=== PATIENT | male | born 1980 | race Caucasian/White ===

== ENCOUNTER 2024-04-05 14:13 | Inpatient (IN) | payer BC ==
[2024-04-05] MEDS ORDERED: D50W 25 GM/50 ML SYRINGE IV ONE (14:32)
[2024-04-05 14:35] LABS: Absolute Eosinophils 0.1 K/uL (0-0.5); Absolute Lymphocytes (CBC) 1.7 K/uL (0.7-4.9); Absolute Monocytes 0.5 K/uL (0.1-1.3); Basophils % 0.8 % (0-1.3); Eosinophils % 1.2 % (0-4.4); Hematocrit 49.8 % (39.6-49.0); Hemoglobin 16.5 g/dL (13.6-17.9); Lymphocytes % 26.8 % (15.3-44.8); MCHC 33.1 g/dL (32.0-36.0); MCV 93.6 fL (80-100); MPV 8.2 fL (7.6-11.3); Monocytes % 7.9 % (3.3-12.3); Neutrophils % 63.3 % (41.7-73.7); Platelets 260 thou/uL (152-406); RBC Red Blood Cell Count 5.32 M/uL (4.33-5.43); Red Cell Distribution Width 13.6 % (12.1-15.2)
[2024-04-05 14:39] LABS: PT Prothrombin Time 10.8 SECONDS (9.4-12.5); PTT, Activated Partial Thromb 25.7 SECONDS (24.3-36.9); Protime INR 0.96
[2024-04-05 14:51] LABS: Albumin 4.4 g/dL (3.4-5.0); Albumin/Globulin Ratio 1.2 (1.1-1.8); Anion Gap 12.5 mEq/L (5.0-15.0); Bilirubin Direct 0.2 mg/dL (0-0.2); Bilirubin Indirect, Calculated 0.4 mg/dL (0.2-0.8); Bilirubin Total 0.6 mg/dL (0.2-1.0); Globulin 3.7 g/dL (2.3-3.5); Magnesium 2.1 mg/dL (1.6-2.4); Potassium 3.5 mEq/L (3.5-5.1); Protein, Total 8.1 g/dL (6.4-8.2); Troponin High Sensitivity 8.6 pg/mL (<58.9)
[2024-04-05] MEDS ORDERED: LABETALOL 20 MG/4ML SYRINGE IV ONE ×2 (15:19→16:35)
[2024-04-05 15:38] LABS: Barbiturates NEGATIVE (NEGATIVE); Benzodiazepines NEGATIVE (NEGATIVE); Cocaine NEGATIVE (NEGATIVE); METHAMPHETAM NEGATIVE (NEGATIVE); Methadone NEGATIVE (NEGATIVE); Opiates NEGATIVE (NEGATIVE); Phencyclidine NEGATIVE (NEGATIVE); THC Cannibis NEGATIVE (NEGATIVE)
--- NOTE | 2024-04-05 16:25 | EDPHYS ---
Physician Documentation [facility] Name: Yeyo Harmon Age: 43 yrs Sex: Male : 1980 Arrival Date: 04/05/2024 Time: 14:13 Bed 13 Private MD: ED Physician Duane Bangura HPI: 04/05 18:22 This 43 yrs old Male presents to ER via EMS with complaints of S/S of Possible Stroke. ms3 18:22 43-year-old male with no past medical history presents to the emergency department via [address] [facility] for altered mental status. 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 At 1 PM patient's girlfriend heard a crash and patient had fallen out of the bed.. Historical: - Allergies: 14:22 No Known Allergies; mb9 - Home Meds: 14:22 None [Active]; mb9 - PMHx: 14:22 None; mb9 - PSHx: 14:22 None; mb9 - Immunization history:: Adult Immunizations up to date. - Infectious Disease History:: Denies. - Social history:: Smoking status: unknown. ROS: 18:22 Unable to obtain ROS due to altered mental status, ms3 Exam: 18:22 Radiologist reports: CT head without contrast negative ms3 18:22 Constitutional: This is a well developed, well nourished patient who is awake, alert, and in no acute distress. Head/Face: Normocephalic, atraumatic. Cardiovascular: Regular rate and rhythm with a normal S1 and S2. No gallops, murmurs, or rubs. Normal PMI, no JVD. No pulse deficits. Respiratory: Lungs have equal breath sounds bilaterally, clear to auscultation and percussion. No rales, rhonchi or wheezes noted. No increased work of breathing, no retractions or nasal flaring. Abdomen/GI: Soft, non-tender, with normal bowel sounds. No distension or tympany. No guarding or rebound. No evidence of tenderness throughout. 18:22 Neuro: Orientation: unable to test, Mentation: responsive to voice confused, Memory: unable to test, Motor: moves all fours, seizure activity, is not displayed by the patient, Abnormal movements: there are no abnormal movements, 18:44 ECG was reviewed by the Attending Physician. ms3 Vital Signs: 14:11 BP 183 / 125; Pulse 98; Resp 18; Temp 98.5; Pulse Ox 100% ; Height 5 ft. 11 in. ; mb9 15:16 BP 174 / 145; Pulse 91; Resp 18; Pulse Ox 100% on R/A; mb9 15:35 BP 161 / 124; Pulse 79; Resp 18; Pulse Ox 100% on R/A; mb9 16:10 BP 160 / 112; Pulse 84; Resp 16; Pulse Ox 97% on R/A; mb9 16:45 BP 162 / 104; Pulse 88; Resp 16; Pulse Ox 97% on R/A; mb9 17:56 BP 158 / 113; Pulse 86; Resp 18; Pulse Ox 96% on R/A; mb9 MDM: 14:22 Patient medically screened. kb 18:22 TNKase (Tenecteplase) Screening: Contraindications: Patient reports onset of signs and ms3 symptoms of stroke greater than 6 hours ago: Yes. Data reviewed: vital signs, nurses notes, and as a result, I will admit patient. Consideration of Admission/Observation Patient was admitted/placed on observation. Management of patient was discussed with the following: Hospitalist: Dr Keith. I considered the following discharge prescriptions or medication management in the emergency department Medications were administered in the Emergency Department. See MAR. Independent interpretation of the following test(s) in the Emergency Department EKG: See my EKG interpretation above CT Scan: My interpretation is CT head without contrast images reviewed by me did not reveal ICH. Historians other than the Patient: EMS: [facility]. Counseling: I had a detailed discussion with the patient and/or guardian regarding the historical points, exam findings, and any diagnostic results supporting the discharge/admit diagnosis, lab results, radiology results, the need for further work-up and treatment in the hospital. ED course: Patient with mild improvement of mental status with confusion and mostly unintelligible speech. Discussed case with Dr. Porter he recommends aspirin, Plavix, folic acid. Patient may need EEG. Discussed case with Dr. Keith and he accepts patient as admission.. 04/05 14:31 Order name: Basic Metabolic Panel; Complete Time: 14:56 ms3 04/05 14:31 Order name: CBC with Diff; Complete Time: 14:56 ms3 04/05 14:31 Order name: Hepatic Function; Complete Time: 14:56 ms3 04/05 14:31 Order name: High Sensitivity Troponin; Complete Time: 14:56 ms3 04/05 14:31 Order name: Magnesium; Complete Time: 14:56 ms3 04/05 14:31 Order name: Protime (+inr); Complete Time: 14:56 ms3 04/05 14:31 Order name: Ptt, Activated; Complete Time: 14:56 ms3 04/05 14:31 Order name: UDS; Complete Time: 15:39 ms3 04/05 14:33 Order name: Glucose, Ancillary Testing; Complete Time: 14:56 EDMS 04/05 14:35 Order name: Glucose, Ancillary Testing EDMS 04/05 14:43 Order name: CREATININE WHOLE BLOOD; Complete Time: 14:56 EDMS 04/05 14:45 Order name: Glucose, Ancillary Testing; Complete Time: 14:56 EDMS 04/05 14:56 Order name: ETOH Level; Complete Time: 15:39 ms3 04/05 17:32 Order name: CBC with Automated Diff EDMS 04/05 17:32 Order name: CBC with Automated Diff EDMS 04/05 17:32 Order name: Comprehensive Metabolic Panel EDMS 04/05 17:32 Order name: Comprehensive Metabolic Panel EDMS 04/05 17:32 Order name: Magnesium EDMS 04/05 17:32 Order name: Magnesium EDMS 04/05 17:32 Order name: Phosphorus EDMS 04/05 17:32 Order name: Phosphorus EDMS 04/05 17:32 Order name: Protime (+INR) EDMS 04/05 17:32 Order name: Protime (+INR) EDMS 04/05 17:32 Order name: PTT, Activated Partial Thromb EDMS 04/05 17:32 Order name: PTT, Activated Partial Thromb EDMS 04/05 17:32 Order name: T4 Free EDMS 04/05 17:32 Order name: T4 Free EDMS 04/05 17:32 Order name: Thyroid Stimulating Hormone EDMS 04/05 17:32 Order name: Thyroid Stimulating Hormone EDMS 04/05 17:32 Order name: Troponin High Sensitivity EDMS 04/05 17:32 Order name: Troponin High Sensitivity EDMS 04/05 17:32 Order name: Troponin High Sensitivity EDMS 04/05 17:32 Order name: Troponin High Sensitivity EDMS 04/05 17:33 Order name: Ammonia EDMS 04/05 17:46 Order name: Blood Culture Adult (2) mb9 04/05 18:14 Order name: Procalcitonin EDMS 04/05 18:15 Order name: Lactate w/ 2H reflex if indic. EDMS 04/05 14:31 Order name: CT Neck Angio ms3 04/05 14:31 Order name: CT Stroke Brain w/o Contrast ms3 04/05 14:31 Order name: Stroke CXR 1 View ms3 04/05 14:33 Order name: Head angio EDMS 04/05 17:32 Order name: CONS Physician Consult EDMS 04/05 17:32 Order name: Physical Therapy Consult EDMS 04/05 14:31 Order name: Accucheck; Complete Time: 14:35 ms3 04/05 14:31 Order name: Cardiac monitoring; Complete Time: 14:35 ms3 04/05 14:31 Order name: EKG - Nurse/Tech; Complete Time: 14:35 ms3 04/05 14:31 Order name: IV Saline Lock; Complete Time: 14:35 ms3 04/05 14:31 Order name: Labs collected and sent; Complete Time: 14:35 ms3 04/05 14:31 Order name: NPO; Complete Time: 14:35 ms3 04/05 14:31 Order name: O2 Per Protocol; Complete Time: 14:35 ms3 04/05 14:31 Order name: O2 Sat Monitoring; Complete Time: 14:35 ms3 04/05 14:31 Order name: Stroke Swallow Screen; Complete Time: 15:13 ms3 04/05 15:12 Order name: Straight Cath; Complete Time: 15:12 mb9 EC:44 Rate is 90 beats/min. Rhythm is regular. Left axis deviation noted. OR interval is ms3 normal. QRS interval is normal. Clinical impression: NSR w/ Non-specific ST/T Changes. Interpreted by me. Reviewed by me. Administered Medications: 14:25 Drug: D50W IVP 50 ml IVP once; (1 amp) Route: IVP; Site: right antecubital; mb9 15:15 Follow up: Response: No adverse reaction mb9 15:21 Drug: Labetalol IV 10 mg IV at calculated rate once Route: IV; Rate: calculated rate; mb9 Site: right antecubital; 18:17 Follow up: Response: No adverse reaction; IV Status: Completed infusion mb9 16:44 Drug: Labetalol IV 10 mg IV at calculated rate once Route: IV; Rate: calculated rate; mb9 Site: right antecubital; 18:17 Follow up: Response: No adverse reaction; IV Status: Completed infusion mb9 Point of Care Testing: Blood Glucose: 14:18 Blood Glucose: 42 mg/dL; mb9 Ranges: Critical Glucose Levels:Adult <50 mg/dl or >400 mg/dl <40 mg/dl or >180 mg/dl Disposition: 18:44 Chart complete. ms3 Disposition Summary: 04/05/24 16:24 Hospitalization Ordered Notes: Hospitalization Status: Inpatient Admission ms3 Provider: Charlie Keith ms3 Condition: Stable ms3 Problem: new ms3 Symptoms: are unchanged ms3 Bed/Room Type: Standard ms3 Location: Intensive Care Unit(04/05/24 17:41) Room Assignment: 6-(04/05/24 17:41) Diagnosis - Altered mental status, unspecified ms3 - Aphasia ms3 - Essential (primary) hypertension ms3 Forms: - Medication Reconciliation Form ms3 - SBAR form ms3 - Leadership Thank You Letter ms3 Signatures: Dispatcher [employer] EDStarla Cruz, RAILROAD TRACK MECHANIC-C RAILROAD TRACK MECHANIC-Ana Tuttle RN RN Duane Chand DO DO ms3 Jane Brunner RN RN mb9 Corrections: (The following items were deleted from the chart) 14:32 14:31 BASIC METABOLIC PANEL+C.LAB.BRZ ordered. EDMS EDMS 14:32 14:31 CBC+H.LAB.BRZ ordered. EDMS EDMS 14:32 14:31 HEPATIC FUNCTION+C.LAB.BRZ ordered. EDMS EDMS 14:32 14:31 Troponin High Sensitivity+C.LAB.BRZ ordered. EDMS EDMS 14:32 14:31 MAGNESIUM+C.LAB.BRZ ordered. EDMS EDMS 14:32 14:31 PROTIME (+INR)+COAG.LAB.BRZ ordered. EDMS EDMS 14:32 14:31 PTT, ACTIVATED+COAG.LAB.BRZ ordered. EDMS EDMS 14:32 14:31 URINE DRUG SCREEN+UC.LAB.BRZ ordered. EDMS EDMS 14:32 14:32 Neck Angio+CT.RAD.BRZ ordered. EDMS EDMS 14:32 14:32 CT-STROKE BRAIN W/O CONTRAST+CT.RAD.BRZ ordered. EDMS EDMS 14:32 14:32 Chest Single View+RAD.RAD.BRZ ordered. EDMS EDMS 14:38 14:33 Ct Stroke Brain Wo Cont ordered. EDMS EDMS 14:38 14:33 Neck Angio ordered. EDMS EDMS 17:41 16:24 Telemetry/MedSurg (Inpatient) ms3 ss 17:41 16:24 ms3 ss
--- NOTE | 2024-04-05 16:25 | ER ---
Nurse's Notes [facility] Name: Yeyo Harmon Age: 43 yrs Sex: Male : 1980 Arrival Date: 04/05/2024 Time: 14:13 Bed 13 Private MD: Diagnosis: Altered mental status, unspecified;Aphasia;Essential (primary) hypertension Presentation: 04/05 14:11 Acuity: EMMA 2 mb9 14:11 Chief complaint: EMS states: "toned out for AMS that started at 1300. Pts GF stated she mb9 heard a thud and found him on the floor. Pt went to bed at 8am this morning and had 1 drink before bed.". Coronavirus screen: At this time, the client does not indicate any symptoms associated with coronavirus-19. Ebola Screen: No symptoms or risks identified at this time. An acute neurological deficit is present. The charge nurse has been notified. The patient has been moved to a treatment area. Pre-hospital glucose is not applicable to this patient. Initial Sepsis Screen: Does the patient meet any 2 criteria? No. Patient's initial sepsis screen is negative. Does the patient have a suspected source of infection? No. Patient's initial sepsis screen is negative. Risk Assessment: Do you want to hurt yourself or someone else? Unable to obtain. Onset of symptoms was April 05, 2024. 14:11 Method Of Arrival: EMS: [facility] mb9 Stroke Activation: Physician: ED Attending; Name: Dr. Bangura; Notified At: ; Arrived At: Physician: Mid-Level Provider; Name: ; Notified At: ; Arrived At: Physician: [not used]; Name: ; Notified At: ; Arrived At: Physician: [not used]; Name: ; Notified At: ; Arrived At: Physician: [not used]; Name: ; Notified At: ; Arrived At: Historical: - Allergies: 14:22 No Known Allergies; mb9 - Home Meds: 14:22 None [Active]; mb9 - PMHx: 14:22 None; mb9 - PSHx: 14:22 None; mb9 - Immunization history:: Adult Immunizations up to date. - Infectious Disease History:: Denies. - Social history:: Smoking status: unknown. Screenin:25 [facility] ED Fall Risk Assessment (Adult) History of falling in the last 3 months, mb9 including since admission Yes- fall prone (multiple falls) (3 pts) Confusion or Disorientation Yes (5 pts) Intoxicated or Sedated No (0 pts) Impaired Gait Yes (1 pt) Mobility Assist Device Used Yes (1 pt) Altered Elimination No (0 pt) Score/Fall Risk Level 3 or more points = High Risk Oriented to surroundings, Maintained a safe environment, Educated pt \\T\\ family on fall prevention, incl call for assistance when getting out of bed, Assessed \\T\\ reinforced patient's understanding of fall precautions, Provided non-skid footwear. Abuse screen: Denies threats or abuse. Nutritional screening: No deficits noted. Tuberculosis screening: No symptoms or risk factors identified. Assessment: 14:11 Reassessment: Code Stroke called. PT taken to CT via stretcher accompanied by nurse. mb9 14:11 General: Appears uncomfortable, Behavior is agitated, anxious, combative, restless, mb9 uncooperative. Pain: Unable to use pain scale. Patient is disoriented. Neuro: Level of Consciousness is confused, Oriented to none aphasia present . Cardiovascular: Patient's skin is warm and dry. Respiratory: Airway is patent Respiratory effort is even, unlabored, Respiratory pattern is regular, symmetrical. GI: Abdomen is round non-distended. : No signs and/or symptoms were reported regarding the genitourinary system. EENT: No signs and/or symptoms were reported regarding the EENT system. Derm: Skin is pink, warm \\T\\ dry. Musculoskeletal: Range of motion: intact in all extremities. 14:36 Reassessment: Unable to complete NIH score at this time due to pt being noncompliant mb9 and unable to follow commands. 14:47 Follansbee Swallow Protocol Exclusion Criteria: Unable to remain alert for testing: Yes. mb9 TNKase (Tenecteplase) Screening: Not Applicable. 15:03 Reassessment: Girlfriend at bedside. mb9 15:16 Reassessment: No changes from previously documented assessment. Patient states symptoms mb9 have not improved. 15:40 Reassessment: pt attempting to climb out of bed. Verbal reassurance given. Pt directed mb9 back to laying down and repositioned. 16:20 Reassessment: pt attempting to climb out of bad. PT confused and uncooperative. Charge mb9 nurse notified and sitter requested. 17:00 Reassessment: Patient appears in no apparent distress at this time. No changes from mb9 previously documented assessment. Vital Signs: 14:11 BP 183 / 125; Pulse 98; Resp 18; Temp 98.5; Pulse Ox 100% ; Height 5 ft. 11 in. ; mb9 15:16 BP 174 / 145; Pulse 91; Resp 18; Pulse Ox 100% on R/A; mb9 15:35 BP 161 / 124; Pulse 79; Resp 18; Pulse Ox 100% on R/A; mb9 16:10 BP 160 / 112; Pulse 84; Resp 16; Pulse Ox 97% on R/A; mb9 16:45 BP 162 / 104; Pulse 88; Resp 16; Pulse Ox 97% on R/A; mb9 17:56 BP 158 / 113; Pulse 86; Resp 18; Pulse Ox 96% on R/A; mb9 ED Course: 14:16 Patient arrived in ED. cm10 14:17 Patient Code stroke called after evaluation by Dr. Bangura. ll1 14:21 Jane Brunner, RN is Primary Nurse. mb9 14:22 Duane Bangura DO is Attending Physician. kb 14:24 Triage completed. mb9 14:24 Initial lab(s) drawn, by me, sent to lab. Maintain EMS IV. Dressing intact. Good blood mb9 return noted. Site clean \\T\\ dry. Gauge \\T\\ site: 16g right AC. Flushed with 10 mL NS. 14:26 Placed in gown. Bed in low position. Call light in reach. Side rails up X 1. Provided mb9 Education on: press call light if needing anything. Client placed on continuous cardiac and pulse oximetry monitoring. NIBP monitoring applied. patient monitor on. 14:40 CT Stroke Brain w/o Contrast In Process Unspecified. EDMS 14:40 EKG done, by ED staff, reviewed by Duane Bangura DO. mb9 14:44 Head angio In Process Unspecified. EDMS 14:44 CT Neck Angio In Process Unspecified. EDMS 14:48 Arm band placed on. mb9 14:50 No provider procedures requiring assistance completed. mb9 15:10 Stroke CXR 1 View In Process Unspecified. EDMS 15:13 ETOH Level Sent. mb9 15:13 Straight cath inserted, using sterile technique, 14 Fr. mb9 16:23 Charlie Keith MD is Hospitalizing Provider. ms3 17:56 Inserted saline lock: 18 gauge in left forearm, using aseptic technique. Blood mb9 collected. Flushed with 10 mL NS. 17:56 Patient admitted, IV remains in place. mb9 18:35 Notified the Hospitalist of a critical lab result(s), lactate 2.8 Dr. Mederos informed. ll1 Administered Medications: 14:25 Drug: D50W IVP 50 ml IVP once; (1 amp) Route: IVP; Site: right antecubital; mb9 15:15 Follow up: Response: No adverse reaction mb9 15:21 Drug: Labetalol IV 10 mg IV at calculated rate once Route: IV; Rate: calculated rate; mb9 Site: right antecubital; 18:17 Follow up: Response: No adverse reaction; IV Status: Completed infusion mb9 16:44 Drug: Labetalol IV 10 mg IV at calculated rate once Route: IV; Rate: calculated rate; mb9 Site: right antecubital; 18:17 Follow up: Response: No adverse reaction; IV Status: Completed infusion mb9 Medication: 14:26 VIS not applicable for this client. mb9 Point of Care Testing: Blood Glucose: 14:18 Blood Glucose: 42 mg/dL; mb9 Ranges: Outcome: 16:24 Decision to Hospitalize by Provider. ms3 18:17 Admitted to ICU accompanied by nurse, accompanied by tech, via wheelchair, on monitor, mb9 Report called to IAN Sky 18:17 Condition: stable 18:17 Instructed on the need for admit, 18:52 Patient left the ED. ll1 Signatures: Dispatcher [employer] EDNC Starla Rodriguez, ERP MANAGER-C ERP MANAGER-Helen Villa RN RN ll1 Duane Bangura DO DO ms3 Jane rBunner RN RN [email or web address] Alexandra Frankel, IAN RN cm10 Corrections: (The following items were deleted from the chart) 14:21 14:21 Reassessment: Code Stroke called. PT taken to CT via stretcher accompanied by joy nurse joy 14:49 14:48 Follansbee Swallow Protocol 3 oz Water Swallow Challenge: mb9 mb9 15:03 14:11 Neuro: Level of Consciousness is confused, Oriented to none mb9 mb9 18:54 18:49 Reassessment: 9 mb9
--- NOTE | 2024-04-05 17:04 | RAD REPORT ---
EXAM DESCRIPTION: CT - Ct Stroke Brain Wo Cont - 04/05/2024 2:38 pm CLINICAL HISTORY: Confusion/alteration of awareness COMPARISON: none TECHNIQUE: Computed axial tomography of the head was obtained. All CT scans are performed using dose optimization technique as appropriate and may include automated exposure control or mA/KV adjustment according to patient size. FINDINGS: An intracranial bleed is not seen . The ventricles are normal in caliber. No extra-axial fluid collection is noted. No significant hypodensity within the brain noted Fluid within the sinuses/ mastoids is not seen. Due to technical issues this exam could not dictated until now IMPRESSION: No acute intracranial abnormality is seen. If patient's symptoms persist MRI of the bra in would be recommended Dr Mc of the emergency room was notified at approximately 2:46 p.m. April 05, 2024
[2024-04-05] MEDS ORDERED: ACETAMINOPHEN 500 MG TAB PO PRN (17:26)
[2024-04-05] MEDS ORDERED: ONDANSETRON 4 MG/2 ML VIAL IV PRN (17:26)
--- NOTE | 2024-04-05 17:37 | P.HP ---
Certification for Inpatient Patient admitted to: Inpatient With expected LOS: >2 Midnights Patient will require the following post-hospital care: Home Health Services Practitioner: I am a practitioner with admitting privileges, knowledge of patient current condition, hospital course, and medical plan of care. Services: Services provided to patient in accordance with Admission requirements found in Title 42 Section 412.3 of the Code of Federal Regulations Patient History Date of Service: 04/05/24 Reason for admission: Altered mental status History of Present Illness: Patient is a 43-year-old gentleman came to the hospital with altered mentation. Patient's states that he has been in normal health and he had been doing really well. He has been working his regular schedule at [employer] in [place] for many years. They both have been working night shifts and he came home early this morning around 8:00. He had taken some Benadryl and had something to drink and had gone to sleep a little bit after that time. She woke up around 1:00 because she heard a loud sound. She woke to find him on the ground and he was fumbling his words. He was really confused and not making a lot of sense. She called EMS who brought him to the emergency room. Code stroke was initiated. CT imaging was performed which did not reveal any significant abnormality. Neurology was notified. I came to see the patient as well and patient was really confused and trying to get out of bed. He was moving all his extremities and he was turning his head all over the place. He seemed very agitated so we gave him some medication for sedation. I started him on Ativan as well as we will start him on a Precedex drip as he is at a risk of hurting himself or staff as he is very agitated. At this time, patient will be admitted to the intensive care unit as we are really not sure exactly what is going on with him and with his degree of agitation he will require a one-to-one sitter. His significant other who has been with him for many years is at bedside & plans to stay with him. At this time, patient will be admitted to the intensive care unit for close monitoring. Allergies No Known Allergies Allergy (Unverified 04/05/24 17:21) Home Medications: NK [No Home Meds] 04/05/24 - Past Medical/Surgical History -: Hypertension Past Surgical History: Unable to obtain - Family History Father Family History: Reviewed- Non-Contributory - Social History Smoking Status: Former smoker Alcohol use: Yes CD- Drugs: No Review of Systems 10-point ROS is otherwise unremarkable Physical Examination - Physical Exam General: Alert, Confused, Other (Patient very agitated) HEENT: Atraumatic, PERRLA, Mucous membr. moist/pink, EOMI, Sclerae nonicteric Neck: Supple, 2+ carotid pulse no bruit, No LAD, Without JVD or thyroid abnormality Respiratory: Clear to auscultation bilaterally, Normal air movement Cardiovascular: Regular rate/rhythm, Normal S1 S2 Gastrointestinal: Normal bowel sounds, Soft and benign, Non-distended, No tenderness Musculoskeletal: No clubbing, No swelling, No tenderness Integumentary: No rashes Neurological: Normal strength at 5/5 x4 extr, Normal tone, Sensation intact, Cranial nerves 3-12 intact, Abnormal speech (Patient is aphasic and not making a lot of sense), Abnormal affect Lymphatics: No axilla or inguinal lymphadenopathy - Studies Laboratory Data (last 24 hrs) 04/05/24 04/05/24 04/05/24 14:18 14:18 14:18 WBC 6.40 Hgb 16.5 Hct 49.8 H Plt Count 260 PT 10.8 INR 0.96 APTT 25.7 Sodium 138 Potassium 3.5 BUN 17 Creatinine 1.01 Glucose 130 H Magnesium 2.1 Total Bilirubin 0.6 AST 17 ALT 30 Alkaline Phosphatase 52 Assessment & Plan - Problems (Diagnosis) (1) Altered mental status Current Visit: Yes Status: Acute (2) Aphasia Current Visit: Yes Status: Acute (3) Hypertensive urgency Current Visit: Yes Status: Acute - Plan 1. Gentle hydration 2. Panculture 3. IV antibiotic and antiviral prophylactically 4. Imaging studies including CT of the brain. MRI for in the morning after sedation 5. Monitor electrolytes 6. Check thyroid studies as well as cortisol level 7. Review medications 8. Neurochecks every 4 hours 9. Permissive hypertension at this time 10. GI DVT prophylaxis Discharge Plan: Home Plan to discharge in: Greater than 2 days - Advance Directives Does patient have a Living Will: No Does patient have a Durable POA for Healthcare: No - Code Status/Comfort Care Code Status Assessed: Yes Code Status: Full Code Critical Care: Yes Time Spent Managing PTS Care (In Minutes): 60
[2024-04-05] MEDS ORDERED: NA CHLORIDE 0.9% 1,000 ML ONE (17:49)
[2024-04-05] MEDS ORDERED: LORazepam 2 MG/ML VIAL ONE (17:49)
[2024-04-05] MEDS: NA CHLORIDE 0.9% 1,000 ML IV SCH (17:57)
[2024-04-05] MEDS: LORazepam 2 MG/ML VIAL IV ONE (17:58)
[2024-04-05] MEDS: LORazepam 2 MG/ML VIAL IV SCH (18:00)
[2024-04-05] MEDS: DEXMEDETOMIDINE HCL 200 MCG in NA CHLORIDE 0.9% 98 ML IV SCH (18:06)
--- NOTE | 2024-04-05 18:14 | RAD REPORT ---
EXAM DESCRIPTION: Peng Single View04/05/2024 3:08 pm CLINICAL HISTORY: Chest pain COMPARISON: none FINDINGS: The lungs appear clear of acute infiltrate. The heart is borderline enlarged Due to technical issues the exam could not be dictated until now. A preliminary report was given to [facility] emergency room IMPRESSION: No acute abnormalities displayed
--- NOTE | 2024-04-05 19:11 | RAD REPORT ---
EXAM DESCRIPTION: Zahra Angio04/05/2024 2:42 pm CLINICAL HISTORY: CVA COMPARISON: None TECHNIQUE: 100 cc Isovue [address] angiogram of the neck was obtained. 3D MIPS reconstruction performed. All CT scans are performed using dose optimization technique as appropriate and may include automated exposure control or mA/KV adjustment according to patient size. FINDINGS: Great vessels unremarkable Common carotid, internal carotid and external carotid arteries bilaterally unremarkable Vertebral arteries unremarkable No dissection is seen. No high-grade stenosis [place] crieria Mild stenosis 0 to 49 % Moderate stenosis 50-69% Severe stenosis 70-99% Due to technical issues the exam did not get dictated until now. Preliminary report was given to the emergency room IMPRESSION: No significant vascular abnormality is displayed
--- NOTE | 2024-04-05 19:11 | RAD REPORT ---
EXAM DESCRIPTION: CTHead angio04/05/2024 2:42 pm CLINICAL HISTORY: CVA COMPARISON: none TECHNIQUE: 100 cc Isovue [address] angiogram of the head was obtained. 3D MIPS reconstruction performed. All CT scans are performed using dose optimization technique as appropriate and may include automated exposure control or mA/KV adjustment according to patient size. FINDINGS: The distal internal carotid basilar, anterior cerebral, middle cerebral and posterior cere bral arteries do not demonstrate a significant stenosis An aneurysm is not seen No large vessel occlusion Due to technical issues the exam did not get dictated until now. Preliminary report was given to the emergency room IMPRESSION: No significant vascular abnormality is displayed
[2024-04-05] MEDS: KCL 20 MEQ/100 mL IVPB 20 MEQ/100 ML BAG IV SCH (19:22)
[2024-04-05] MEDS: NA CHLORIDE 0.9% 1,000 ML IV ONE (19:22)
[2024-04-05] MEDS: ENOXAPARIN 40 MG/0.4 ML SQ SCH (19:22)
[2024-04-05] MEDS: levETIRAcetam 500 MG in NA CHLORIDE 0.9% 100 ML IV SCH (19:40)
[2024-04-05] MEDS: LORazepam 2 MG/ML VIAL IV PRN (19:58)
[2024-04-05] MEDS: HYDRALAZINE HCL 20 MG/ML VIAL IV PRN (19:59)
[2024-04-05] MEDS: ASPIRIN EC 81 MG TAB PO ONE (19:59)
[2024-04-05] MEDS: ATORVASTATIN 40 MG TAB PO SCH (21:00)
[2024-04-05] MEDS: DEXMEDETOMIDINE HCL 200 MCG/2 ML VIAL ONE ×2 (23:19→23:20)
[2024-04-05] MEDS: NA CHLORIDE 0.9% 500 ML ONE (23:19)
[2024-04-06] MEDS: DEXMEDETOMIDINE HCL 1,000 MCG in NA CHLORIDE 0.9% 490 ML IV SCH (00:50)
[2024-04-06] MEDS ORDERED: DEXMEDETOMIDINE HCL 200 MCG in NA CHLORIDE 0.9% 98 ML IV SCH (00:50)
[2024-04-06 05:19] LABS: Absolute Eosinophils 0.1 K/uL (0-0.5); Absolute Lymphocytes (CBC) 2.3 K/uL (0.7-4.9); Absolute Monocytes 0.8 K/uL (0.1-1.3); Absolute Neutrophil 6.3 K/uL (1.8-8.0); Basophils % 0.5 % (0-1.3); Eosinophils % 1.5 % (0-4.4); Hematocrit 42.6 % (39.6-49.0); Hemoglobin 14.3 g/dL (13.6-17.9); Lymphocytes % 24.2 % (15.3-44.8); MCH 31.4 pg (27.0-35.0); MCHC 33.7 g/dL (32.0-36.0); MCV 93.3 fL (80-100); MPV 8.4 fL (7.6-11.3); Monocytes % 8.2 % (3.3-12.3); Neutrophils % 65.6 % (41.7-73.7); PT Prothrombin Time 11.9 SECONDS (9.4-12.5); PTT, Activated Partial Thromb 27.7 SECONDS (24.3-36.9); Platelets 212 thou/uL (152-406); Protime INR 1.06; RBC Red Blood Cell Count 4.57 M/uL (4.33-5.43); Red Cell Distribution Width 13.6 % (12.1-15.2)
[2024-04-06] MEDS ORDERED: DEXMEDETOMIDINE HCL IV SCH (05:25)
[2024-04-06] MEDS ORDERED: NA CHLORIDE 0.9% IV SCH (05:25)
[2024-04-06 05:59] LABS: ALT/SGPT 22 U/L (16-61); Albumin 3.8 g/dL (3.4-5.0); Albumin/Globulin Ratio 1.4 (1.1-1.8); Alkaline Phosphatase 44 U/L (45-117); BUN Blood Urea Nitrogen 16 mg/dL (7-18); Bicarbonate 24 mEq/L (21-32); Bilirubin Total 1.2 mg/dL (0.2-1.0); Globulin 2.7 g/dL (2.3-3.5); Glomerular Filtration Rate 82 ml/min (=/>90); Glucose Level 129 mg/dL (74-106); Magnesium 1.7 mg/dL (1.6-2.4); Phosphorus 4.2 mg/dL (2.5-4.9); Protein, Total 6.5 g/dL (6.4-8.2); Sodium Level 140 mEq/L (136-145); Troponin High Sensitivity 6.8 pg/mL (<58.9)
[2024-04-06 06:01] LABS: AST/SGOT < 10 U/L (15-37)
[2024-04-06] MEDS: MAGNESIUM SULFATE 1 gm IVPB 1 GM/100 ML BAG IV ONE ×2 (06:20→06:25)
[2024-04-06] MEDS: ASPIRIN EC 81 MG TAB PO SCH (08:16)
[2024-04-06] MEDS: CEFTRIAXONE 2,000 MG in NA CHLORIDE 0.9% 100 ML IV SCH (10:35)
--- NOTE | 2024-04-06 10:35 | P.PN ---
Date of Service: 04/06/24 Subjective Patient doing better. Mentation improved. Hemodynamics are much better. Working on discharge planning in the morning. Physical Examination - Physical Exam General: Alert, Confused, Other (Patient very agitated) Respiratory: Clear to auscultation bilaterally, Normal air movement Cardiovascular: Regular rate/rhythm, Normal S1 S2 Gastrointestinal: Normal bowel sounds, Soft and benign, Non-distended, No tenderness Musculoskeletal: No clubbing, No swelling, No tenderness Integumentary: No rashes Neurological: Normal strength at 5/5 x4 extr, Normal tone, Sensation intact, Cranial nerves 3-12 intact, Abnormal speech (Patient is aphasic and not making a lot of sense), Abnormal affect Assessment & Plan - Problems (Diagnosis) (1) Altered mental status Current Visit: Yes Status: Acute (2) Aphasia Current Visit: Yes Status: Acute (3) Hypertensive urgency Current Visit: Yes Status: Acute - Plan Continue with plan of care as mentioned below: 1. Gentle hydration 2. Panculture 3. IV antibiotic and antiviral prophylactically 4. Imaging studies including CT of the brain. MRI for in the morning after sedation 5. Monitor electrolytes 6. Check thyroid studies as well as cortisol level 7. Review medications 8. Neurochecks every 4 hours 9. Permissive hypertension at this time 10. GI DVT prophylaxis Discharge Plan: Home Plan to discharge in: Greater than 2 days - Advance Directives Does patient have a Living Will: No Does patient have a Durable POA for Healthcare: No - Code Status/Comfort Care Code Status Assessed: Yes Code Status: Full Code Critical Care: Yes Time Spent Managing PTS Care (In Minutes): 60
[2024-04-06] MEDS: LORazepam 2 MG/ML VIAL IV ONE (10:59)
[2024-04-06] MEDS: ACYCLOVIR INJ 800 MG in NA CHLORIDE 0.9% 100 ML IVPB SCH (12:57)
[2024-04-06 18:02] VITALS: BMI 31.0
[2024-04-07 05:03] LABS: Absolute Eosinophils 0.2 K/uL (0-0.5); Absolute Lymphocytes (CBC) 1.8 K/uL (0.7-4.9); Absolute Monocytes 0.7 K/uL (0.1-1.3); Absolute Neutrophil 4.9 K/uL (1.8-8.0); Basophils % 0.5 % (0-1.3); Eosinophils % 2.4 % (0-4.4); Hematocrit 42.7 % (39.6-49.0); Hemoglobin 14.5 g/dL (13.6-17.9); Lymphocytes % 23.2 % (15.3-44.8); MCH 31.6 pg (27.0-35.0); MCHC 33.9 g/dL (32.0-36.0); MCV 93.3 fL (80-100); MPV 8.3 fL (7.6-11.3); Monocytes % 9.5 % (3.3-12.3); Neutrophils % 64.4 % (41.7-73.7); Nucleated Red Blood Cells % 0.1 % (0-0); Platelets 210 thou/uL (152-406); RBC Red Blood Cell Count 4.58 M/uL (4.33-5.43); Red Cell Distribution Width 13.6 % (12.1-15.2)
[2024-04-07 05:25] LABS: Magnesium 2.1 mg/dL (1.6-2.4); Troponin High Sensitivity 5.7 pg/mL (<58.9)
[2024-04-07 09:26] VITALS: O2SAT 98
[2024-04-07 10:56] LABS: PT Prothrombin Time 12.1 SECONDS (9.4-12.5); PTT, Activated Partial Thromb 25.9 SECONDS (24.3-36.9); Protime INR 1.08
--- NOTE | 2024-04-07 12:09 | RAD REPORT ---
EXAM DESCRIPTION: MRI - Brain Wo Cont - 04/07/2024 11:41 am CLINICAL HISTORY: AMS COMPARISON: No comparisons TECHNIQUE: Sagittal T1-weighted images were obtained along with PD/heavily T2-weighted and T2-FLAIR images. Axial DWI and ADC mapping sequences were also obtained along with coronal heavily T2-weighted images were obtained. FINDINGS: No intracranial hemorrhage, mass or acute infarction. There is no edema or shift of midlin e structures. No extra-axial fluid collections. Signal voids are seen as a normal finding in the francis r intracranial vessels. No significant white matter disease. Mastoid air cells and paranasal sinuses are clear. IMPRESSION: Normal noncontrast brain MRI. No acute infarct identified.
--- NOTE | 2024-04-07 12:15 | EEG ---
CHART: [id number] TEST ID#: [id number] DATE OF STUDY: 04-06-2024 THE EEG WAS RECORDED PORTABLE IN THE ICU ON A 17 CHANNEL MACHINE. ELECTRODES WERE APPLIED IN THE USUAL MANNER USING THE INTERNATIONAL 10-20 SYSTEM. THE WAKING BACKGROUND RHYTHM IN THIS RECORD CONSISTS OF FAIRLY WELL DEVELOPED AND FAIRLY WELL ORGANIZED WAVES OF 9-10 HZ., MAXIMAL IN THE POSTERIOR HEAD REGIONS WHICH ATTENUATE NORMALLY WITH EYE OPENING. LOW-VOLTAGE 18-22 HZ ACIVITY IS EXPRESSED IN THE FRONTAL REGIONS. THERE ARE NO FOCAL OR LATERALIZING FEATURES. NO EPILEPTIFORM ACTIVITY APPEARS. SLEEP DID NOT OCCUR. HYPERVENTILATION WAS DID NOT OCCUR. PHOTIC STIMULATION PRODUCED FAIR DRIVING BILATERALLY. IMPRESSION: NORMAL EEG FOR THE AGE OF THE PATIENT IN [place].
--- NOTE | 2024-04-07 12:32 | RAD REPORT ---
EXAM DESCRIPTION: RAD - Lumbar Puncture For Dx - 04/07/2024 12:25 pm CLINICAL HISTORY: No comparisons COMPARISON: None. TECHNIQUE: The procedure, risks and alternatives to the procedure were discussed with the patient in detail. After answering all questions, both oral and written consent were obtained. Time-out procedu re was performed. The patient was placed in an oblique prone position on the fluoroscopic table. The skin of the lower back was prepped and draped in the usual sterile fashion. After anesthetizing the skin and deeper sof t tissues with 1% lidocaine, a 22 gauge needle was advanced into the thecal sac at the L1-2 level. At the conclusion of the procedure the needle was withdrawn and a sterile bandage placed over the pun cture site. The patient tolerated the procedure well without immediate complications. Post-procedure care and precaution instructions were discussed with the patient before the LP procedure. Fluoroscopy time: 0 minutes Radiation dose: 7.413 mGy IMPRESSION: Successful fluoroscopic guided lumbar puncture. All obtained fluid was sent to the lab f or studies requested by the referring physician. An attempt was made to assess opening pressures. Despite repositioning the needle, the flow of CSF wa s slow which precluded measurement and not indicative of elevated opening pressures.
[2024-04-07 12:45] LABS: CSF Glucose 62 mg/dL (40-70)
[2024-04-07 12:47] LABS: Body Fluid Source CSF; Tube # #2
[2024-04-07 12:48] LABS: Appearance CLEAR (CLEAR); Body Fluid WBC 3 /mm^3; Color of Supernate Not Xanthochromic (Not Xantho); Color of fluid Colorless (COLORLESS)
[2024-04-07 12:49] VITALS: TEMP 98
--- NOTE | 2024-04-07 14:12 | EKG ---
Test Date: 2024-04-05 Test Time: 14:41:17 Centrifuge Separator Tender: MB MEASUREMENT RESULTS: Intervals: Rate: 90 [place]: 142 QRSD: 92 QT: 388 QTc: 474 [place]: P: 40 AZ: 142 QRS: -31 T: 45 INTERPRETIVE STATEMENTS: Normal sinus rhythm Left axis deviation Abnormal ECG No previous ECG available for comparison Electronically Signed On 04-07-24 14:08:04 CDT by Jorge Perry
[2024-04-07 17:21] VITALS: BP 160/72
--- NOTE | 2024-04-07 19:47 | RAD REPORT ---
EXAM DESCRIPTION: Shoulder Right 2 View - 04/07/2024 5:39 pm CLINICAL HISTORY: shoulder pain/recent fall COMPARISON: No comparisons TECHNIQUE: Internal and external rotation views of the right shoulder were obtained. FINDINGS: There is no fracture or dislocation. AC and glenohumeral joint mild degenerative changes. No acute or suspicious findings. IMPRESSION: No acute abnormality. Mild degenerative changes as above the.
--- NOTE | 2024-04-14 03:17 | P.DS ---
Discharge Date: 04/07/24 Disposition: ROUTINE DISCHARGE Discharge Condition: GOOD Reason for Admission: Altered mental status - Problems (1) Altered mental status Status: Acute (2) Aphasia Status: Acute (3) Hypertensive urgency Status: Acute Brief History of Present Illness: Patient is a 43-year-old gentleman came to the hospital with altered mentation. Patient's states that he has been in normal health and he had been doing really well. He has been working his regular schedule at [employer] in [place] for many years. They both have been working night shifts and he came home early this morning around 8:00. He had taken some Benadryl and had something to drink and had gone to sleep a little bit after that time. She woke up around 1:00 because she heard a loud sound. She woke to find him on the ground and he was fumbling his words. He was really confused and not making a lot of sense. She called EMS who brought him to the emergency room. Code stroke was initiated. CT imaging was performed which did not reveal any significant abnormality. Neurology was notified. I came to see the patient as well and patient was really confused and trying to get out of bed. He was moving all his extremities and he was turning his head all over the place. He seemed very agitated so we gave him some medication for sedation. I started him on Ativan as well as we will start him on a Precedex drip as he is at a risk of hurting himself or staff as he is very agitated. At this time, patient will be admitted to the intensive care unit as we are really not sure exactly what is going on with him and with his degree of agitation he will require a one-to-one sitter. His significant other who has been with him for many years is at bedside & plans to stay with him. At this time, patient will be admitted to the intensive care unit for close monitoring. Hospital Course: Working on discharge planning. Outpatient follow-up. Patient has done well during hospital stay. Patient is clinically doing much better. Labs are stable. At this time, patient is stable for discharge with outpatient follow-up with PCP and specialist. Patient is told to call me if he has any questions over the next few days and we can give patient taking care of at that time. Vital Signs/Physical Exam: Temp Pulse Resp BP Pulse Ox 98.0 F 65 20 160/72 H 96 04/07/24 16:00 04/07/24 17:00 04/07/24 17:00 04/07/24 17:00 04/07/24 17:00 Laboratory Data at Discharge: WBC 7.70 thou/uL (4.3-10.9) 04/07/24 04:43 Hgb 14.5 g/dL (13.6-17.9) 04/07/24 04:43 Hct 42.7 % (39.6-49.0) 04/07/24 04:43 Plt Count 210 thou/uL (152-406) 04/07/24 04:43 PT 12.1 SECONDS (9.4-12.5) 04/07/24 10:32 INR 1.08 04/07/24 10:32 APTT 25.9 SECONDS (24.3-36.9) 04/07/24 10:32 Sodium Cancelled 04/07/24 Unknown Potassium Cancelled 04/07/24 Unknown BUN Cancelled 04/07/24 Unknown Creatinine Cancelled 04/07/24 Unknown Glucose Cancelled 04/07/24 Unknown Phosphorus 4.2 mg/dL (2.5-4.9) 04/06/24 04:54 Magnesium Cancelled 04/07/24 Unknown Total Bilirubin 1.2 mg/dL (0.2-1.0) H 04/06/24 04:54 AST < 10 U/L (15-37) L 04/06/24 04:54 ALT 22 U/L (16-61) 04/06/24 04:54 Alkaline Phosphatase 44 U/L (45-117) L 04/06/24 04:54 Triglycerides 111 mg/dL (<150) 04/06/24 04:54 Cholesterol 165 mg/dL (<200) 04/06/24 04:54 HDL Cholesterol 63 mg/dL (40-60) H 04/06/24 04:54 Cholesterol/HDL Ratio 2.62 04/06/24 04:54 Home Medications: NK [No Home Meds] 04/05/24 Physician Discharge Instructions: PROBLEM: AMS GOAL: Clear understanding of disease process INSTRUCTIONS: -DC IV and DC home -Follow-up with PCP in 1 to 2 weeks -Follow-up with Neurology in 1 to 2 weeks -Please call Dr. Keith at [phone] if any questions regarding hospital stay -Please call nursing station at [phone] if any nursing or medication questions -Return to the emergency room if symptoms worsen Diet: Regular Activity: Ad renae DME DME: Date Ordered: Name of Company: [employer] Services Needed: None Name of Company: Date or Referral: IMMUNIZATION Influenza Vaccine Indicated: Influenza Vaccine Given: Date Given: Pneumonia Vaccine Indicated: Pneumonia Vaccine Given: Date Given: -DC IV and DC home Follow up with a Neurologist of your choice: JOSEE SOLANO MD [address] [place] [address], [address] [place] [id number] Diet: Regular Activity: Ad renae Followup: NONE,NONE [Primary Care Provider] -
== END 2024-04-07 19:07 | disposition home or self-care (01) | DRG 71 ==
LOC: ER 14:13 → ERHOLD 17:26 → 3RD-ICU 18:21
PROVIDERS: ADMIT Hospitalist; ATTEND Hospitalist
DX: G93.41 Metabolic encephalopathy (principal); E87.20 Acidosis, unspecified; R47.01 Aphasia; I16.0 Hypertensive urgency; I10 Essential (primary) hypertension; Z87.891 Personal history of nicotine dependence
CPT/HCPCS: 36415; 51702; 70450; 70496; 70498; 70551; 71045; 77003; 80048; 80053; 80061; 80076; 80307; 82077; 82140; 82565; 82945; 82947; 83605; 83735; 84100; 84145; 84157; 84439; 84443; 84484; 85025; 85610; 85730; 86592; 87040; 87070; 89050; 93005; 95816; 96365; 96366; 96375; 99285; J0133; J0360; J0696; J1650; J1953; J3475; J3480; J7030; J7040; Q9967